=== PATIENT | male | born 1990 | race Caucasian/White ===

== ENCOUNTER 2021-03-01 11:46 | Emergency (ER) | payer BC ==
--- NOTE | 2021-03-01 11:57 | EDM.PDOC ---
ED HPI GENERAL MEDICAL PROBLEM - General Chief Complaint: Gastrointestinal Problem Stated Complaint: ABDOMINAL PAIN/DIARRHEA Time Seen by Provider: 03/01/21 11:57 Source of Information: Reports: Patient History Limitations: Reports: No Limitations - History of Present Illness INITIAL COMMENTS - FREE TEXT/NARRATIVE: patient presented to the ER with a c/o loose stool for 4-5 days, that got worse over the last 48 hrs. 5-6x loose stool/day. Yellowish/brownish in color. Mild abdominal bloating and discomfort, but not pain. h/o appendectomy many years ago Also reports mild chills but no fever. Significant decreased in appetite and energy level. Patient claims that every time he eat or drink something, it just pass through him very quickly.. Denies any possibility of food poisoning, no sick contacts. Patient is from the the [facility] and here visiting a family. Onset: Gradual Duration: Day(s): (5) Location: Reports: Abdomen Quality: Reports: Same as Previous Episode Improves with: Reports: None Worsens with: Reports: None - Related Data Allergies Allergy/AdvReac Type Severity Reaction Status Date / Time No Known Allergies Allergy Verified 03/01/21 13:13 Past Medical History HEENT History: Reports: None Cardiovascular History: Reports: None Respiratory History: Reports: None ED ROS GENERAL - Review of Systems Review Of Systems: See Below Constitutional: Reports: Malaise, Fatigue, Decreased Appetite HEENT: Reports: No Symptoms Respiratory: Reports: No Symptoms Cardiovascular: Reports: No Symptoms GI/Abdominal: Reports: Anorexia, Diarrhea, Decreased Appetite. Denies: Bloody Stool, Constipation, Hematemesis, Hematochezia, Melena, Vomiting : Reports: No Symptoms Musculoskeletal: Reports: No Symptoms Skin: Reports: No Symptoms Neurological: Reports: No Symptoms Psychiatric: Reports: No Symptoms ED EXAM, GI/ABD - Physical Exam Exam: See Below Exam Limited By: No Limitations General Appearance: Alert, WD/WN, No Apparent Distress Eyes: Bilateral: EOMI Head: Atraumatic Neck: Normal Inspection Respiratory/Chest: No Respiratory Distress Cardiovascular: Normal Peripheral Pulses, Regular Rate, Rhythm GI/Abdominal Exam: Normal Bowel Sounds, Soft, Non-Tender, No Organomegaly, No Distention Extremities: Normal Inspection Neurological: Alert, Oriented, No Motor/Sensory Deficits Course - Vital Signs Last Recorded V/S: Last Vital Signs Temp 36.9 C 03/01/21 12:15 Pulse 78 03/01/21 12:15 Resp 16 03/01/21 12:15 BP 142/92 H 03/01/21 12:15 Pulse Ox 99 03/01/21 12:15 - Orders/Labs/Meds Orders: Active Orders 24 hr Category Date Time Status OVA + PARASITE EXAM Urgent Lab 03/01/21 12:17 Ordered STOOL CULTURE Urgent Lab 03/01/21 12:50 Received Sodium Chloride 0.9% [Normal Saline] 1,000 ml Med 03/01/21 13:37 Ordered IV .BOLUS Medication Orders Sodium Chloride (Normal Saline) 1,000 mls @ 999 mls/hr IV .BOLUS ONE Stop: 03/01/21 14:37 Labs: Laboratory Tests 03/01/21 03/01/21 03/01/21 Range/Units 12:27 12:59 12:59 WBC 5.7 (4.0-11.0) K/uL RBC 6.26 (4.50-6.50) M/uL Hgb 18.3 H* (13.0-18.0) g/dL Hct 49.9 (40.0-54.0) % MCV 80 (76-96) fL MCH 29.2 (27.0-32.0) pg MCHC 36.7 H (31.0-35.0) g/dL RDW 13.7 (11.0-16.0) % Plt Count 154 (150-400) K/uL MPV 9.7 (6.0-10.0) fL Sodium 141 (136-145) mmol/L Potassium 4.1 (3.5-5.1) mmol/L Chloride 102 (98-107) mmol/L Carbon Dioxide 26.1 (21.0-32.0) mmol/L Anion Gap 17.0 H (5.0-15.0) mmol/L BUN 14 (8-26) mg/dL Creatinine 1.36 H (0.70-1.30) mg/dL Est Cr Clr Drug Dosing 99.28 mL/min Estimated GFR (MDRD) > 60 (>60) MLS/MIN BUN/Creatinine Ratio 10.3 (6-25) Glucose 93 (74-100) mg/dL Calcium 9.3 (8.5-10.1) mg/dL SARS CoV-2 RNA Rapid ARON Negative Meds: Medications Generic Name Dose Route Start Last Admin Trade Name Yareli PRN Reason Stop Dose Admin Sodium Chloride 1,000 mls @ 999 mls/hr 03/01/21 13:37 Normal Saline IV 03/01/21 14:37 .BOLUS ONE - Re-Assessments/Exams Free Text/Narrative Re-Assessment/Exam: normal vitals labs were ordered - significant for elevation in Hgb levels, and Cr as well. normal electrolytes, concerns for dehydration. COVID test was negative IVF bolus was given - 1 lit NS reports significant improvement in symptoms and energy levels. Stool sample was ordered - for culture and for O&P tests. Departure - Departure Time of Disposition: 14:30 Disposition: Home, Self-Care 01 Condition: Good Clinical Impression: Acute diarrhea, Enteritis - Discharge Information *PRESCRIPTION DRUG MONITORING PROGRAM REVIEWED*: Not Applicable *COPY OF PRESCRIPTION DRUG MONITORING REPORT IN PATIENT MALOU: Not Applicable Forms: ED Department Discharge Sepsis Event Note (ED) - Focused Exam Vital Signs: Vital Signs Temp Pulse Resp BP Pulse Ox 03/01/21 12:15 36.9 C 78 16 142/92 H 99 - Problem List & Annotations (1) Acute diarrhea SNOMED Code(s): 451958425 Code(s): R19.7 - DIARRHEA, UNSPECIFIED Status: Acute Priority: Low Current Visit: Yes (2) Enteritis SNOMED Code(s): 90194426 Code(s): K52.9 - NONINFECTIVE GASTROENTERITIS AND COLITIS, UNSPECIFIED Status: Acute Priority: Low Current Visit: Yes - Problem List Review Problem List Initiated/Reviewed/Updated: Yes - My Orders Last 24 Hours: My Active Orders 03/01/21 12:17 OVA + PARASITE EXAM Urgent 03/01/21 12:50 STOOL CULTURE Urgent 03/01/21 13:37 Sodium Chloride 0.9% [Normal Saline] 1,000 ml IV .BOLUS - Assessment/Plan Last 24 Hours: My Active Orders 03/01/21 12:17 OVA + PARASITE EXAM Urgent 03/01/21 12:50 STOOL CULTURE Urgent 03/01/21 13:37 Sodium Chloride 0.9% [Normal Saline] 1,000 ml IV .BOLUS Plan: - recommend to increase fluids intake - drink Gatorade to replace your electrolytes - take antibiotics as prescribed for 5 days ( no alcohol intake with this antibiotics ) - follow up with your PCP in 1-2 weeks if symptoms do not improve with treatment - return to the ER if symptoms got worse or any concerns
[2021-03-01] MEDS: Sodium Chloride 0.9% 1,000 ML IV ONE (13:47)
[2021-03-01] MEDS ORDERED: metroNIDAZOLE 500 MG Tab ONE (14:55)
== END 2021-03-01 15:00 | disposition home or self-care (01) ==
LOC: LB.ED 11:46
DX: K52.9 Noninfective gastroenteritis and colitis, unspecified (principal); Z20.822 Contact with and (suspected) exposure to COVID-19
CPT/HCPCS: 36415; 80048; 85027; 87045; 87046; 87427; 99283; 99284; A9270-GY; J7030; U0002